=== PATIENT | male | born 1980 | race Caucasian/White ===

== ENCOUNTER 2018-01-22 18:13 | Emergency (ER) | payer BC, SELFPAY ==
[2018-01-22] MEDS ORDERED: HYDROcodone/Acetaminophen 10/325 mg Tablet ONE (18:56)
[2018-01-22] MEDS ORDERED: Ibuprofen 800 MG TAB ONE (18:58)
[2018-01-22] MEDS ORDERED: Dexamethasone 4 mg/ml Vial ONE (18:58)
--- NOTE | 2018-01-22 22:25 | RAD ---
LEFT FOOT THREE VIEWS: Date: 01-22-18 FINDINGS: No major fracture is seen. There is, however, a tiny avulsion on the dorsum of the navicular. I canno t tell if this is old or new. A very tiny calcaneus spur is forming. There is no periosteal reaction in the foot. IMPRESSION: Small talar navicular avulsion of indeterminate age. POS: HOME
== END 2018-01-22 19:13 | disposition home or self-care (01) ==
LOC: BURERS 18:13
DX: S92.252A Displaced fracture of navicular [scaphoid] of left foot, initial encounter for closed fracture (principal); M77.52 Other enthesopathy of left foot and ankle; I10 Essential (primary) hypertension; J45.909 Unspecified asthma, uncomplicated; Z79.899 Other long term (current) drug therapy; X50.1XXA Overexertion from prolonged static or awkward postures, initial encounter
CPT/HCPCS: J1100